=== PATIENT | male | born 2005 | race Caucasian/White ===

== ENCOUNTER 2023-02-21 08:19 | Emergency (ER) | payer OTHER, SELFPAY ==
--- NOTE | ~2023-02-21 | CT_ITS ---
EXAMINATION: CT abdomen pelvis w con DATE: 02/21/2023 10:38 INDICATION: Vomiting TECHNIQUE: Computed tomography (CT) of the abdomen and pelvis was performed with 100 cc Omnipaque 350 intravenous contrast. The dose-length product was 339.74 mGy-cm. Automated exposure control and iter ative reconstruction technique were employed. COMPARISON: None. FINDINGS: Lung bases are unremarkable. Heart size normal. No significant pleural or pericardial effus ion. The liver, spleen, pancreas, adrenal glands and kidneys are unremarkable. Gallbladder is present. Pos sible gallstones. There is a calcific nodule in the stomach dependently which may represent bowel con tent. Partially calcified gastric polyp is less favored although not excluded. No abnormal pelvic mas ses or fluid collections. No acute osseous abnormality. No free air. IMPRESSION: 1. Partially calcified 7 mm soft tissue nodule along the dependent aspect of the gastric wall which m ay represent bowel content, although polyp is not excluded. 2: Possible cholelithiasis. Consider correlation with ultrasound. Reviewed, dictated and finalized at location B. IMPRESSION: 1. Partially calcified 7 mm soft tissue nodule along the dependent aspect of th e gastric wall which may represent bowel content, although polyp is not exclude d. 2: Possible cholelithiasis. Consider correlation with ultrasound.
--- NOTE | ~2023-02-21 | US_ITS ---
US right upper quadrant INDICATION: Right upper quadrant pain PROCEDURE: Realtime right upper abdominal ultrasound. COMPARISON: No prior studies for comparison. FINDINGS: The pancreas is normal without focal mass or pancreatic ductal dilation. Liver echotexture is normal without focal mass or intrahepatic biliary dilatation. There is normal directional flow i n the portal vein. The gallbladder is normal without stones, gallbladder wall thickening or pericholecystic fluid. Comm on bile duct measures 2.4 mm. No sonographic Jay's sign. IMPRESSION: 1: Normal limited abdominal ultrasound. Reviewed, dictated and finalized at location B.
[2023-02-21 08:26] VITALS: BP 129/95; PULSE 68; RESP 18; O2SAT 100
[2023-02-21 08:51] LABS: Basophils Percent Auto 0.2 % (0.2-1.2); Eosinophils Percent Auto 0.2 % (0-4.4); Hematocrit 41.3 % (42.0-52.0); Hemoglobin 14.3 g/dL (14.0-18.0); Immature Granulocyte Absolute 0.04 K/mm3 (0.00-0.031); Immature Granulocyte Percent A 0.4 % (0-0.5); Lymphocytes Absolute Auto 1.32 K/mm3 (0.9-3.2); Lymphocytes Percent Auto 13.3 % (18.3-44.2); Mean Corpuscular HGB Conc 34.6 g/dl (32-36); Mean Corpuscular Hemoglobin 31.7 pg (26-34); Mean Corpuscular Volume 91.6 fl (80-100); Mean Platelet Volume 10.7 fl (7.4-10.4); Monocytes Absolute Auto 0.7 K/mm3 (0.1-0.6); Monocytes Percent Auto 6.5 % (2.6-8.5); Neutrophils Absolute Auto 7.9 K/mm3 (1.3-6.7); Neutrophils Percent Auto 79.4 % (45.5-73.1); Platelet Count Result 284 k/mm3 (150-375); Red Blood Count 4.51 M/mm3 (4.6-6.20); Red Cell Distribution Width 11.7 % (11.5-14.5)
[2023-02-21 08:54] LABS: Appearance Urine Turbid (Clear); Bacteria Urine None Seen /hpf; Bilirubin Urine Negative (Negative); Blood Urine Negative (Negative); Color Urine Yellow (Yellow); Glucose Urine UA Negative (Negative); Ketones Urine 3+ mg/dL (Negative); Leukocyte Esterase Ur Trace LEU/UL (Negative); Nitrate Urine Negative (Negative); Protein Urine Trace mg/dL (Negative); RBC Urine 0-2 /hpf (0-2); Specific Grav Ur 1.019 (1.001-1.035); Squamous Epithelial Cell Urine None seen /hpf (Few); WBC Urine 0-5 /hpf; pH Urine 7.5 (5.0-9.0)
[2023-02-21 08:56] LABS: Add Urine Microscopic? YES
[2023-02-21 09:01] LABS: Alanine Aminotransferase 21 U/L (6-50); Albumin Level 5.1 g/dL (3.7-5.6); Anion Gap 13 mmol/L (8-16); Aspartate Amino Transferase 34 U/L (17-59); Bilirubin,Total 1.4 mg/dL (0.2-1.3); Blood Urea Nitrogen 10 mg/dL (8-21); Calcium 9.5 mg/dL (8.9-10.7); Carbon Dioxide 21 mmol/L (22-30); Chloride 102 mmol/L (98-107); Estimated CRCL calculation 126 ml/min; Estimated Glomerular Filt Rate > 60; Glucose 139 mg/dL (65-110); Potassium 3.6 mmol/L (3.4-5.0); Sodium 136 mmol/L (134-143)
[2023-02-21 09:02] LABS: Alkaline Phosphatase 58 U/L (58-237); Lipase 168 U/L (23-300)
[2023-02-21] MEDS: SODIUM CHLORIDE 0.9% IV 1,000 ML 999 ML IV CONT (09:07)
[2023-02-21] MEDS: ONDANSETRON INJ 4 MG/2 ML VIAL IV PUSH (09:08)
--- NOTE | 2023-02-21 09:09 | ED.GENADULT ---
HPI - General Adult General Chief complaint: Nausea/Vomiting/Diarrhea Stated complaint: vomiting Time Seen by Provider: 02/21/23 08:36 History of Present Illness HPI narrative: Patient is a 17-year-old male who presents ER with nausea and vomiting as well as diarrhea. Began at 4:30 in the morning. Due to the frequency of his emesis he felt he needed to come to the ER for further evaluation. No blood in the stool or emesis. No known sick contacts. Reports he had dinner at 630 yesterday evening and had hamburger. No chest pain or chest pressure. No aggravating or alleviating factors. No syncope. Related Data Allergies Allergy/AdvReac Type Severity Reaction Status Date / Time No Known Allergies Allergy Verified 02/21/23 08:41 Review of Systems Review of Systems: All systems reviewed & are unremarkable except as noted in HPI and below Constitutional: Constitutional: Denies chills, Denies fatigue and Denies fever(s) ENT: Denies nasal congestion and Denies sore throat Cardiovascular: Cardiovascular: Denies chest pain, Denies rapid heart rate and Denies radiating jaw, neck or arm pain Respiratory: Respiratory: Denies cough and Denies dyspnea Gastrointestinal: Gastrointestinal: Denies abdominal pain, Reports diarrhea, Reports nausea and Reports vomiting Genitourinary: Genitourinary: Denies dysuria and Denies urinary frequency PMFSH Past Medical History Medical History (Updated 02/21/23 @ 12:55 by Pop Fonseca MD) Healthy adult male Surgical History Surgical History (Updated 02/21/23 @ 09:10 by Pop Fonseca MD) No history of previous surgery Exam Narrative: GENERAL: Well-appearing, well-nourished, and in no acute distress. HEAD: Normocephalic, atraumatic. ENT: Mucous membranes moist. NECK: Supple. CHEST: Clear to auscultation. No respiratory distress. HEART: Regular rate and rhythm. Normal peripheral pulses. ABDOMEN: Soft, nontender, nondistended. EXTREMITIES: Normal range of motion. No edema. SKIN: Warm, dry, no rash. NEURO: Alert and oriented x3. PSYCH: Normal mood and affect. Course Vital Signs Vital signs: Vital Signs Pulse Rate 68 02/21/23 08:26 Respiratory Rate 18 02/21/23 08:26 Blood Pressure 129/95 H 02/21/23 08:26 Pulse Oximetry 100 02/21/23 08:26 Oxygen Delivery Room Air 02/21/23 08:26 Pulse Rate 51 L 02/21/23 12:15 Respiratory Rate 15 02/21/23 12:15 Blood Pressure 110/65 02/21/23 12:15 Pulse Oximetry 99 02/21/23 12:15 Oxygen Delivery Room Air 02/21/23 08:26 Medical Decision Making MDM Narrative Medical decision making narrative: -Presentation: 88-year-old male with nausea/vomiting/diarrhea. -DDX includes but is not limited to: Gastroenteritis, pancreatitis, cholecystitis, diverticulitis, colitis. -Co-morbidities complicating care: None -Social determinants of health: Student -External Chart Review: None -Hx from independent Sources: Patient -Independent interpretation of studies: Urinalysis without evidence of infection but 3+ ketones. CMP with a glucose of 139 otherwise unremarkable. CBC normal. -Discussion of Management/Consultants: none -Dx tests considered but not ordered: none -Procedures: none -Interventions: IV fluid, Zofran, Phenergan. -Shared decision making / Disposition: Patient feels much better after treatments. Discussed imaging results and possible gastric polyp needing follow-up with GI. Patient and parents verbalized understanding. -RX: Zofran Vital Signs Vital Signs: Vital Signs Pulse Rate 68 02/21/23 08:26 Respiratory Rate 18 02/21/23 08:26 Blood Pressure 129/95 H 02/21/23 08:26 Pulse Oximetry 100 02/21/23 08:26 Oxygen Delivery Room Air 02/21/23 08:26 Pulse Rate 51 L 02/21/23 12:15 Respiratory Rate 15 02/21/23 12:15 Blood Pressure 110/65 02/21/23 12:15 Pulse Oximetry 99 02/21/23 12:15 Oxygen Delivery Room Air 02/21/23 08:26 Lab
[2023-02-21] MEDS: PROMETHAZINE HCL 25 MG/ML AMPUL 12.5 MG IV PUSH (10:42)
[2023-02-21 10:50] VITALS: BP 116/70; PULSE 68; RESP 21; O2SAT 98
[2023-02-21 12:15] VITALS: BP 110/65; PULSE 51; RESP 15; O2SAT 99
[2023-02-21 13:10] VITALS: BP 115/71; PULSE 53; RESP 21; O2SAT 100
== END 2023-02-21 13:11 | disposition home or self-care (01) ==
PROVIDERS: Emergency Provider Emergency Medicine
DX: K52.9 Noninfective gastroenteritis and colitis, unspecified (principal); K31.7 Polyp of stomach and duodenum; R93.2 Abnormal findings on diagnostic imaging of liver and biliary tract
CPT/HCPCS: 36415; 74177; 76705; 80053; 81001; 83690; 85025; 96361; 96374; 96375; 99284; J2405; J2550; J7030; Q9967